=== PATIENT | female | born 1980 | race Caucasian/White ===

== ENCOUNTER 2019-06-14 17:48 | Observation (INO) | payer MEDICAID ==
[~2019-06-14] VITALS: Ht 162.6 cm; Wt 113.4 kg
[2019-06-14] MEDS ORDERED: PNV1TABL76 MT (19:06)
[2019-06-14] MEDS ORDERED: ACETAMINOPHEN 500MG TABLET PO NR (19:15)
== END 2019-06-14 20:52 | disposition home or self-care (01) ==
LOC: 8 EST LDRP 17:48
PROVIDERS: ADMIT Obstetrics & Gynecology; ATTEND Obstetrics & Gynecology
DX: O26.893 Other specified pregnancy related conditions, third trimester (principal); R51 Headache; Z3A.36 36 weeks gestation of pregnancy
CPT/HCPCS: 99281; G0378